=== PATIENT | male | born 1970 | race Caucasian/White ===

== ENCOUNTER → 2021-07-10 | Outpatient (CLI) | payer OTHER, SELFPAY ==
--- NOTE | 2021-07-10 15:36 | FLU_PTH ---
PATIENT: ARSENIO GAO LOC: [facility] U#:[id number] AGE/SX: 51/M ROOM: RE07/10/[address]: Dr. Mohan Black MD : 1970 BED: DIS: 07/10/2021 SPEC #: [id number] RECD: 07/10/21 17:51 STATUS: TWAN TOWNSEND #: [id number] MIKAYLA: 07/10/21 15:[address]: Mohan Black DEPT: CYTOLOGY RECD BY: Tiffanie Loyola Tissues: Thyroid gland, NOS Procedures: Special Stain Group II Surgery Specimen Level IV Cytospin Fluid HEADER OPERATION: Fine needle aspiration thyroid PRE-OP DIAGNOSIS: Right thyroid nodule TISSUE SUBMITTED: Right thyroid nodule fluid for cytology DIAGNOSIS CYTOLOGY Right thyroid nodule fluid for cytology, FNA (cytospin and cell block): Consistent with cyst contents. See comment. CAMILA:mnoique 07/12/2021 COMMENT The specimen is bloody and entirely consists of macrophages. The specimen is nondiagnostic due to lack of follicular cells. Correlation with clinical, radiologic findings and appropriate follow up are necessary. Repeat FNA is suggested, if clinically indicated. Case has been reviewed in consultation with Dr. Monroy who concurs with the above diagnosis. IDC:AM CYTOLOGY STUDY Slides are reviewed. CYTOLOGY GROSS Received is 40 ml of brown cloudy fluid labeled with the patient's name and and designated per the requisition as right thyroid. Submitted for cytology preparation including cell block. / monique 07/11/2021 TC:5 CPT: 29331, 37302
== END | disposition home or self-care (01) ==
PROVIDERS: Visit Provider Otolaryngology
DX: E04.1 Nontoxic single thyroid nodule (principal)
CPT/HCPCS: 88108; 88305; 88313

== ENCOUNTER 2021-08-18 12:48 | Observation (INO) | payer OTHER, SELFPAY ==
--- NOTE | 2021-08-14 14:04 | EKG12_ITS ---
Test Reason : PREOP Blood Pressure : / mmHG Vent. Rate : 084 BPM Atrial Rate : 084 BPM P-R Int : 186 ms QRS Dur : 088 ms QT Int : 360 ms P-R-T Axes : 062 040 034 degrees QTc Int : 425 ms Normal sinus rhythm Normal ECG Confirmed by GINNY BROOKS, CHE ([id number]), video tape editor ELA AVENDANO ([id number]) on 08/15/2021 9:52:31 AM Referred By: Mohan Black Confirmed By:CHE GROSS MD
[2021-08-14 14:31] LABS: Hematocrit 44.2 % (40-54); Hemoglobin 15.5 g/dL (13.0-16.5); Mean Corp Hgb Conc 35.1 g/dL (32-36); Mean Corpuscular Hgb 31.3 pg (27.0-32.0); Mean Corpuscular Volume 89.3 fL (80-94); Mean Platelet Vol. 9.7 fl (6.2-12.0); Platelet Count 233 K/mm3 (150-450); RBC Distribution Width CV 11.9 % (11.6-14.6); RBC Distribution Width SD 38.7 fl (35.1-43.9); Red Blood Count 4.95 M/mm3 (4.6-6.2); White Blood Count 8.8 K/mm3 (4.4-11.0)
[2021-08-14 14:58] LABS: Hemoglobin A1c 9.9 % (3.8-5.6)
[2021-08-14 15:02] LABS: Anion Gap 3 (5-15); BUN 22 mg/dL (7-18); BUN/Creat Ratio 16.1 RATIO (10-20); Calcium,Total 10.1 mg/dL (8.5-10.1); Chloride 97 mmol/L (98-107); Creatinine, Serum 1.37 mg/dL (0.70-1.30); EST Glomerular Filtration Rate 58 mL/min (>60); Est Glom Filt Rate - Afr Amer 71 mL/min (>60); Glucose 330 mg/dL (74-106); Potassium 3.9 mmol/L (3.5-5.1); Sodium Level 134 mmol/L (136-145)
[2021-08-18] VITALS (10 sets, daily range): BP systolic 116–157; BP diastolic 75–110; PULSE 69–92; RESP 16–18; TEMP 35.4–36.1; O2SAT 94–100; BMI 32.7
--- NOTE | 2021-08-18 | THYROID_PTH ---
PATIENT: ARSENIO GAO LOC: [facility] U#:[id number] AGE/SX: 51/M ROOM: [facility] [place] RE08/18/[address]: Dr. Mohan Black MD : 1970 BED: 1 DIS: 08/19/2021 SPEC #: [id number] RECD: 08/18/21 12:20 STATUS: TWAN REBeverly #: [id number] MIKAYLA: 08/18/21 00:[address]: Mohan Black DEPT: SURGICAL PATHOLOGY RECD BY: Caitlyn Adam ENTERED: 08/18/21 13:00 SP TYPE: THYROID OTHR DR: Edy Silver, SNOWMAKERShirley Tissues: Thyroid gland, NOS Procedures: Frozen Section (charge) Frozen Section Add'l ([facility] [employer] [employer]) Surgery Specimen Level V HEADER OPERATION: Right thyroid lobectomy wit frozen section PRE-OP DIAGNOSIS: Right thyroid nodule TISSUE SUBMITTED: Right thyroid lobe, frozen section at 1218 FROZEN SECTION DIAGNOSIS Right lobe thyroid, lobectomy: Degenerating, cystic nodule with hemorrhage. Colloid nodules. No evidence of malignancy. AM:monique 08/18/2021 MICROSCOPIC DIAGNOSIS Right lobe of thyroid, lobectomy: Benign cystic nodule with degenerative change and associated fibrosis and benign histiocytic proliferation. Colloid nodules. Chronic follicular thyroiditis. AM:monique 08/21/2021 MICROSCOPIC DESCRIPTION Slides are reviewed. GROSS DESCRIPTION Received fresh for frozen section consultation labeled with the patient's name is a specimen designated right lobe of thyroid. The specimen consists of a thyroid with attached isthmus measuring 5 x 3.5 x 3.5 cm and weighing 29.6 gm. The specimen is inked as follows: anterior ? blue, posterior ? black and isthmus ? yellow. Dissection reveals a cystic degenerating nodule measuring 4.5 cm in greatest dimension and containing brownish fluid. Clinical Trial Manager sections of the nodule are submitted for frozen section consultation (cassettes 1 & 2). The remainder of the specimen is submitted in its entirety for permanent sections in cassettes 3-14. / AM:monique 08/18/21 TC:1 CPT: 06159, 47756, 15974
[2021-08-18] MEDS: Lactated Ringers 1,000 ML 100 ML IV ×3 (09:46→15:15)
[2021-08-18 10:01] LABS: Bedside Glucose 202 mg/dL (70-110)
[2021-08-18] MEDS: Lidocaine 1% /Epi 1:100 (50ml) 50 ML VIAL (11:19)
--- NOTE | 2021-08-18 12:39 | PCM.OPRPT ---
Problems Associated Problem List Diagnoses (1) Thyroid nodule: Report of Operation Date of Procedure: 08/18/21 Pre-Operative Diagnosis: Right large thyroid nodule with suspicious features Post-Operative Diagnosis: Same Surgery/Procedure Performed:: Right hemithyroidectomy Description of Surgical Findings:: Celio is a 51-year-old male with a solitary 3-1/2 cm right thyroid nodule with suspicious ultrasound findings. Attempts at biopsy were nondiagnostic on 2 occasions and excision for definitive evaluation was offered and he was agreeable to proceed. The risks, alternatives, potential complications, and benefits were discussed at length and any questions answered to the patient and/or caregiver's satisfaction. Witnessed informed consent was obtained in the office, and the patient and/or caregiver was agreeable to proceed. Procedure went as follows: The patient was identified in the preoperative holding and brought to the operating room, placed under general anesthesia and intubated with a neuromonitoring tube. The grounding electrodes were then placed on the chest and confirmed to be operational in accordance with the vice president for philanthropy's directions to allow for recurrent laryngeal nerve monitoring. The neck was then prepped and draped in usual sterile fashion and the planned skin incision was marked 2 finger breadths above the sternal notch with a marking pen. The incisional line was then injected with 1% lidocaine with 100,000 epinephrine for a total of 6 mL. After allowing for vasoconstriction, a 15 blade scalpel was used to make an incision 8 cm in length through the skin and subcutaneous tissues and platysma. A subplatysmal flap was then elevated superiorly and inferiorly to allow for placement of the self-retaining thyroid retractor. The strap muscles were then divided in the midline and on the right side the thyroid lobe dissected in a sub-capsular fashion. The inferior, middle, and superior thyroid vessels were individually clamped and ligated with a combination of 3-0 silk sutures and vascular clips. The parathyroid glands were identified along the inferior vascular pedicle and preserved. The recurrent laryngeal nerve was also identified and followed to its nerve entry point and the thyroid gland dissected free of its attachments to the trachea at Broyle's ligament. A tongue of thyroid tissue overlaid this area requiring delicate and extensive dissection to free this and then retracted to allow for visualization of the nerve to its new entry point. The right lobe was then freed and then this was then transected at the isthmus and sent for pathologic evaluation. This was not suggestive of malignancy in the left lobe was left in situ. No significant bleeding was encountered and #7 flat drains were then placed into each tracheoesophageal groove and brought out through separate stab incisions in the neck and secured with 3-0 silk sutures. The strap muscles were then re-approximated in the midline with a running 3-0 Vicryl suture followed by interrupted 3-0 Vicryl sutures to close the platysma and subcutaneous tissues. A 5-0 Monocryl was then used to close the skin followed by Steri-Strips completing the procedure. The patient was then returned to anesthesia, revived and extubated having tolerated the procedure well. Surgeon: Mohan Black Type of Anesthesia: General Anesthesiologist: Tony Swift Specimen's removed: right thyroid lobe and nodule Drains: #7 flat CARMEN Estimated Blood Loss (mL): 10 mL Fluids Replaced: 1200 mL Grafts/Implants Used: none Complications none Admit VTE Documentation VTE Present on Admission: No VTE Mechan Device Prophylaxis: SCD's VTE Pharm Prophylaxis ordered?: No
--- NOTE | 2021-08-18 13:10 | SUR.PHASEI ---
BGL 147
[2021-08-18 13:15] LABS: Bedside Glucose 147 mg/dL (70-110)
--- NOTE | 2021-08-18 14:23 | SUR.PHASEI ---
awaiting transport to [place] [id number]
[2021-08-18 17:15] LABS: Bedside Glucose 162 mg/dL (70-110)
[2021-08-18] MEDS: Insulin Lispro 100 UNIT/ML INSULN.PEN SC ×2 (17:16→21:21)
[2021-08-18] MEDS: Acetaminophen 500 MG Tablet PO (18:38)
[2021-08-18] MEDS: Ondansetron 4 MG/2 ML Vial IV (19:32)
--- NOTE | 2021-08-18 19:48 | NURSING ---
PT HAD A LARGE EMESIS THIS EVENING. ZOFRAN GIVEN BY TIN HEWITT. PT REPORTS HE IS FEELING BETTER NOW.
[2021-08-18 21:31] LABS: Bedside Glucose 268 mg/dL (70-110)
[2021-08-19] MEDS: Lactated Ringers 1,000 ML 100 ML IV (01:25)
[2021-08-19 01:28] VITALS: BP 118/66; PULSE 84; RESP 15; TEMP 36.3; O2SAT 96
[2021-08-19 03:00] VITALS: RESP 15
[2021-08-19] MEDS: Acetaminophen 500 MG Tablet PO (06:54)
[2021-08-19] MEDS: Ondansetron 4 MG/2 ML Vial IV ×2 (07:12→11:21)
[2021-08-19] MEDS: Insulin NPH Human 100 UNITS/ML PEN SC (08:41)
[2021-08-19 09:00] VITALS: RESP 16
[2021-08-19 09:31] LABS: Bedside Glucose 149 mg/dL (70-110)
--- NOTE | 2021-08-19 09:47 | DCINST_ITS ---
Discharge Instructions Diet Discharge Diet: 1999 Calorie Control Diet Activity Discharge Activity: Return to Normal Activity Weight Bearing Status: Weight bearing as tolerated Dressing / Incision Call your doctor if your incision/area has: Increased Pain/ Swelling, Increased Redness and Swelling at the incision site Call your doctor if you observe: Fever of 101 or Higher and Uncontrolled pain Cleanse incision/area with: Soap & Water Follow Up Care Please Follow Up With: Mohan Black MD When: 1 week Test Results: Test results from this visit will be discussed in further detail at your follow-up appointment, if applicable. Discharge Plan Admission Admit Date/Time: 08/18/21 12:48 Primary Reason for Your Visit: thyroid nodule Attending Provider: Mohan Black Primary Care Provider: Edy Silver NP Discharge Orders/Prescriptions Prescriptions: Continued sildenafil 50 mg Tablet 50 mg PO DAILY PRN (Reason: Erectile Dysfunction) RF: 0 Farxiga 5 mg Tablet 5 mg PO DAILY RF: 0 Other Ambulatory Orders: 12 Lead EKG (Routine) Timeframe: [id number] Location: None Selected Ordered By: Dr. Tony Swift Referrals / Follow Up: Edy Silver NP, SPORTS TEAM MANAGER-C [Primary Care Provider] - Disposition Disposition (needs filled in before D/C Order can be placed): Home, Self Care
--- NOTE | 2021-08-19 09:50 | PCM.PN.SRG ---
Subjective Subjective Patient reports he has been doing well with minimal pain at his incision site. He did have some nausea and vomiting which was well controlled with Zofran. He denies any hoarseness or breathing problems. Objective Data Objective Data Patient is well-appearing at the bedside. Neck incision is clean dry and intact. Drain output is serosanguineous and decreasing. As the wound appearance is excellent without any fluid accumulation this drain is removed at the bedside despite its higher than optimal output given the risk of infection from his underlying diabetes. Vital Signs: Vital Signs Temp Pulse Resp BP Pulse Ox 97.4 F L 84 15 118/66 96 08/19/21 01:28 08/19/21 01:28 08/19/21 03:00 08/19/21 01:28 08/19/21 01:28 Oxygen Delivery Method Room Air Weight: 92 kg Body Mass Index (BMI) 32.7 Intake & Output: Intake and Output for Last 24 Hours 08/17/21 08/18/21 08/19/21 23:59 23:59 23:59 Intake Total 1325 / 1675 1750 / 1750 Output Total 750 / 750 420 / 420 Balance 575 / 925 1330 / 1330 Lab / Micro Data Result Diagrams: 08/14/21 14:18 08/14/21 14:18 Labs: Laboratory Results - last 24 hr 08/18/21 09:34: POC Glucose 202 H 08/18/21 13:10: POC Glucose 147 H 08/18/21 17:05: POC Glucose 162 H 08/18/21 21:20: POC Glucose 268 H 08/19/21 08:33: POC Glucose 149 H Physical Exam Const alert and oriented x3 General Appearance: cooperative and comfortable HEENT normocephalic and head/scalp atraumatic Eyes PERRL Neck full ROM and supple Chest Chest: symmetrical chest wall rise Resp normal respiratory effort Effort and Inspection: able to speak in complete sentences Skin no rashes or lesions noted Assessment & Plan Assessment/Plan (1) Thyroid nodule: PLAN: Patient is doing well status post right hemithyroidectomy for a large suspicious thyroid nodule. Initial pathologic evaluation suggested a benign nodule which is reassuring. Postoperatively the patient has done well without excessive elevation of blood sugars although poorly controlled diabetes as noted in his history. He has been seen by certified control systems technician while he is here and has been advised for outpatient follow-up with them. His drain is removed at the bedside today. He will be dosed with Zofran prior to his ride home as he concerned about further nausea with travel. But otherwise he reports the acute episode has subsided. His pain is been adequately controlled with Tylenol he will continue with this for pain management. He will follow up with me as an outpatient next week and is advised on the signs of wound infection or other complication for which she will notify me if these are noted. Overall he is doing very well in his postoperative period and the wound site looks excellent and I do not anticipate any difficulties.
[2021-08-19] MEDS: Empagliflozin 10 MG Tablet PO (10:48)
[2021-08-19] MEDS: 0.9% Saline Lock 10 ML Syringe IV (11:22)
== END 2021-08-19 11:45 | disposition home or self-care (01) ==
LOC: SDC 14:44 → MS2 14:44
PROVIDERS: Anesthesiology; Admitting Provider Otolaryngology; PCP Nurse Practitioner Primary Care; Referring Provider Otolaryngology; Visit Provider Otolaryngology
PROC: (CPT 60220; principal; 2021-08-18 10:15)
DX: E04.1 Nontoxic single thyroid nodule (principal); E11.9 Type 2 diabetes mellitus without complications; G47.30 Sleep apnea, unspecified; G25.81 Restless legs syndrome; Z79.899 Other long term (current) drug therapy; Z79.4 Long term (current) use of insulin
CPT/HCPCS: 00320; 60220; 36415; 80048; 82962; 83036; 85027; 88307; 88331; 88332; 93005; 96361; 96374; 96376; 97802; 99218; J7120; A4216; G0378; J2405